=== PATIENT | male | born 1950 | race Caucasian/White ===

== ENCOUNTER 2025-03-11 06:30 | Day surgery (SDC) | payer MEDICARE ==
[2025-02-12 11:10] VITALS: BMI 26.9
[2025-03-11] MEDS ORDERED: Ondansetron PF 4 MG/2 ML Vial ONE (08:00)
[2025-03-11] MEDS ORDERED: PROPOFOL 200 MG/20 ML VIAL ONE (08:00)
[2025-03-11] MEDS ORDERED: Rocuronium Bromide 10 MG/ML (10ML VIAL) ONE (08:00)
[2025-03-11] MEDS ORDERED: PHENYLEPHRINE-NS 100 MCG/ML 10 ML SYRINGE ONE (08:00)
[2025-03-11] MEDS ORDERED: Lidocaine 1% PF 5 ML VIAL ONE (08:00)
== END 2025-03-11 14:25 | disposition home or self-care (01) ==
LOC: SDC 06:30
PROVIDERS: ATTEND Internal Medicine
PROC: 02583ZZ Destruction of Conduction Mechanism, Percutaneous Approach (ICD-10-PCS; principal; 2025-03-11)
DX: I48.3 Typical atrial flutter (principal); I48.0 Paroxysmal atrial fibrillation; E78.5 Hyperlipidemia, unspecified; E11.9 Type 2 diabetes mellitus without complications; Z79.01 Long term (current) use of anticoagulants
CPT/HCPCS: 85347 ×2; 93005; 93655; 93656; 93657; C1730; C1732; C1733; C1753; C1766; C1769 ×3; C1894 ×4; J1100; J2405; J2704